=== PATIENT | male | born 1980 | race Caucasian/White ===

== ENCOUNTER 2016-06-30 12:32 | Outpatient (CLI) | payer SELFPAY ==
[~2016-06-30] VITALS: Ht 182.9 cm; Wt 125.4 kg
[2016-06-30] VITALS (17 sets, daily range): BP systolic 104–151; BP diastolic 56–97; PULSE 65–90; RESP 12–25; TEMP 97.6–98.1; O2SAT 95–97; Ht 182.9 cm; Wt 125.4 kg
[~2016-06-30 12:32] MED LIST: ASPI-557 PO; FLEC50TA2 PO; NORMAL SALINE 1,000 ML IV SCH; OMEP40CA52 PO; RANI150T12 PO
--- NOTE | 2016-06-30 12:37 | NUR ---
ADMIT PT ADMITTED TO ROOM 122 AT THIS TIME. PT AMBULATORY. FAMILY/FRIEND PRESENT UPON ADMIT. PT ALERT AND ORIENTED AND REPOSITIONED SELF IN BED. WILL CONTINUE TO MONITOR.
[2016-06-30] MEDS ORDERED: CETI-221 PO (13:15)
[2016-06-30 13:16] LABS: BASOPHILS % (AUTO) 0.4 % (0-2); EOSINOPHILS # (AUTO) 0.1 T/MM3 (0-0.5); EOSINOPHILS % (AUTO) 1.9 % (0-4); HCT - HEMATOCRIT 45.5 % (41-53); HGB - HEMOGLOBIN 15.8 GM/DL (13.5-17.5); IMMATURE GRANULOCYTE # (AUTO) 0.01 T/MM3 (0.00-0.03); IMMATURE GRANULOCYTE % (AUTO) 0.1 % (0.0-0.5); LYMPHOCYTES # (AUTO) 1.8 T/MM3 (1-4.8); LYMPHOCYTES % (AUTO) 26.2 % (23-45); MEAN CORPUSCULAR HGB 29.8 UUG (26-34); MEAN CORPUSCULAR HGB CONC(MCHC 34.7 GM/DL (31-37); MEAN CORPUSCULAR VOLUME 85.7 UM3 (80-100); MEAN PLATELET VOLUME 10.2 UM3 (9.4-12.4); MONOCYTES # (AUTO) 0.5 T/MM3 (0-0.8); MONOCYTES % (AUTO) 7.3 % (0-9.0); NEUTROPHILS #(AUTO)-ABSOLUTE 4.3 T/MM3 (1.8-7.7); NEUTROPHILS % (AUTO) 64.1 % (33-66); RED BLOOD COUNT 5.31 M/MM3 (4.50-5.90); WBC - WHITE BLOOD COUNT 6.7 T/MM3 (4.5-11.0)
[2016-06-30 13:26] LABS: ANION GAP 11 MEQ/L (5-15); BUN/CREATININE RATIO 26 RATIO (6-26); CALCIUM 9.1 MG/DL (8.4-10.2); CHLORIDE 110 MEQ/L (98-107); CO2 - CARBON DIOXIDE 25 MEQ/L (22-30); CREATININE 0.9 MG/DL (0.8-1.5); GLOMERULAR FILTRATION RATE 97; GLUCOSE 91 MG/DL (75-110); POTASSIUM 4.2 MEQ/L (3.6-5); SODIUM 146 MEQ/L (134-144)
--- NOTE | 2016-06-30 13:39 | NUR ---
CM CM IN TO VISIT PATIENT, HE IS A&O. IS AT BEDSIDE. PATIENT PLANS TO DISCHARGE HOME, DENIES DISCHARGE NEEDS. CM CONTACT INFORMATION PROVIDED. KASSIEE SCORE IS 1, NO FURTHER FOLLOW UP IS NEEDED. Addendum: 06/30/16 at 1340 by BRIEN JOHNSON RN Amended: Links added.
[2016-06-30] MEDS ORDERED: VERAPAMIL 5mg/2ml INJECTION IV ONE (13:57)
[2016-06-30] MEDS ORDERED: NITROGLYCERIN 50mg/10ml INJECTION IV ONE (13:57)
[2016-06-30] MEDS ORDERED: HEPARIN 1,000units in NS 500ml BAG IV ONE (13:58)
[2016-06-30] MEDS ORDERED: LIDOCAINE 1% (10mg/ml) 30ml SDV ONE (13:58)
[2016-06-30] MEDS ORDERED: FENTANYL 100mcg/2ml INJECTION ONE (15:49)
[2016-06-30] MEDS ORDERED: MIDAZOLAM 2mg/2ml INJECTION ONE (15:49)
--- NOTE | 2016-06-30 15:50 | NUR ---
TO [facility] PT TRANSPORTED TO [facility] AT THIS TIME VIA CART. FAMILY PRESENT UPON TRANSFER. VITAL SIGNS STABLE ON ROOM AIR. PT VOIDED AND INFORMED CONSENT OBTAINED PRIOR TO TRANSFER. WILL CONTINUE TO MONITOR.
[2016-06-30] MEDS ORDERED: NITROGLYCERIN 0.4 MG SUBLINGUAL TABLET SL PRN (16:15)
[2016-06-30] MEDS ORDERED: LORAZEPAM 0.5 MG TABLET PO PRN (16:15)
[2016-06-30] MEDS ORDERED: PROMETHAZINE 25 MG INJECTION IV PRN (16:15)
[2016-06-30] MEDS ORDERED: METOCLOPRAMIDE 10mg/2ml INJECTION IV PRN (16:15)
[2016-06-30] MEDS ORDERED: MORPHINE SULFATE 4 MG SYRINGE IV PRN ×2 (16:15)
[2016-06-30] MEDS ORDERED: ACETAMINOPHEN 325 MG TABLET PO PRN (16:15)
[2016-06-30] MEDS ORDERED: MILK OF MAGNESIA 30 ML SUSP PO PRN (16:15)
[2016-06-30] MEDS ORDERED: MAG-AL + SIM LIQUID 30 ML UDC PO PRN (16:15)
[2016-06-30] MEDS ORDERED: BISACODYL 5 MG E.C. TABLET PO PRN (16:15)
[2016-06-30] MEDS ORDERED: ATROPINE 1 MG/ML VIAL IV PRN (16:15)
[2016-06-30] MEDS ORDERED: BISACODYL 10 MG SUPPOSITORY RECTALLY PRN (16:15)
[2016-06-30] MEDS ORDERED: HYDROCODONE/APAP 5 mg/325 mg TABLET PO PRN (16:15)
[2016-06-30] MEDS ORDERED: LORAZEPAM 2 MG/ML INJECTION IV PRN (16:15)
[2016-06-30] MEDS ORDERED: ONDANSETRON 4mg/2ml INJECTION IV PRN (16:15)
--- NOTE | 2016-06-30 16:24 | NUR ---
RETURN PT RETURNED TO ROOM 122 AT THIS TIME VIA CART. PT TRANSFERRED SELF FROM CART TO BED. VITAL SIGN STABLE ON ROOM AIR. FAMILY/FRIENDS PRESENT IN ROOM UPON RETURN. WILL CONTINUE TO MONITOR CLOSELY.
--- NOTE | 2016-06-30 19:45 | NUR ---
DISCHARGE TO HOME WITH DRIVING HIM. AMBULATORY TO E.R. EXIT, THEN TO VEHICLE. PT AND VERBALIZED UNDERSTANDING OF DISMISSAL INSTRUCTIONS INCLUDING, DIET, ACTIVITY RESTRICTIONS, HIS F/U APPT WITH [facility] FOR 07/15/16. GIVEN TR BAND DISMISSAL INSTRUCTIONS AND WHEN TO CALL IF..INSTRUCTIONS. RIGHT WRIST PUNCTURE SITE DRESSING REMAINS DRY AND INTACT. MEDS RETURNED TO PATIENT AND DISMISSAL PACKET PRINTED AND PROVIDED TO PATIENT. IV DC'D UPON DISCHARGE.
--- NOTE | 2016-07-01 08:17 | CVPROF ---
DATE OF PROCEDURE June 30, 2016 INDICATION The patient is a 35-year-old gentleman with atrial fibrillation and abnormal stress test and was referred for further evaluation by cardiac catheterization and possible intervention. INFORMED CONSENT Informed consent was obtained after explaining the procedure and the potential risks to the patient who agreed to proceed with the procedure. PROCEDURE 1. Left heart catheterization. 2. Coronary angiography. 3. Left ventriculography. TECHNIQUE He was prepped and draped in the usual sterile techniques. Conscious sedation was performed using Versed and fentanyl. 1% lidocaine was used for local anesthesia. Using modified Seldinger technique, arterial access was obtained into the right radial artery with placement of a 6-[place] arterial sheath. 3000 units of heparin, 2.5 mg of verapamil, and 300 mcg of nitroglycerin were given through the arterial sheath. LEFT VENTRICULOGRAPHY Left ventriculography in single-plane VEGA shallow projection showed normal LV systolic function with ejection fraction of about 65% with no mitral regurgitation or gradient across the aortic valve. LVEDP was about 20. CORONARY ANGIOGRAPHY Left main, left anterior descending and diagonals, left circumflex and marginals, and right coronary artery were all free of significant lesions. The patient tolerated the procedure well with no complications. IMPRESSION 1. No significant obstructive coronary artery disease. 2. Normal LV systolic function with ejection fraction of about 65%. PLAN Medical management. CHRISTIED
--- NOTE | 2016-07-02 11:34 | NUR ---
ATTEMPTED [facility] FOLLOW UP PHONE CALL #1, NO ANSWER, LEFT VOICE MESSAGE TO RETURN CALL TO CM.
== END 2016-06-30 19:45 | disposition home or self-care (01) ==
LOC: CATH 12:32 → SRG 12:33 → CATH 19:45
PROVIDERS: ATTEND Internal Medicine Cardiovascular Disease
DX: R94.39 Abnormal result of other cardiovascular function study (principal); I48.0 Paroxysmal atrial fibrillation; I10 Essential (primary) hypertension; K21.9 Gastro-esophageal reflux disease without esophagitis; Z79.82 Long term (current) use of aspirin; Z79.899 Other long term (current) drug therapy; Z82.49 Family history of ischemic heart disease and other diseases of the circulatory system
CPT/HCPCS: 80048; 85025; 93005; 93458